=== PATIENT | male | born 1955 | race African-American/Black ===

== ENCOUNTER 2020-09-24 22:04 | Observation (INO) | payer OTHER ==
[~2020-09-24 22:04] MED LIST: LIDOCAINE PATCH REMOVAL MC SCH
[2020-09-24] MEDS ORDERED: ONDANSETRON 4 MG/2 ML VIAL IVPUSH ONE (22:27)
[2020-09-24] MEDS ORDERED: METOCLOPRAMIDE HCL INJECTION 10 MG/2 ML VIAL IVPUSH ONE (22:28)
[2020-09-24] MEDS ORDERED: ONDANSETRON 4 MG/2 ML VIAL ONE (22:28)
[2020-09-24] MEDS ORDERED: ACETAMINOPHEN INJECTION 100 ML IVPB ONE (22:34)
[2020-09-24] MEDS ORDERED: LIDOCAINE 5% TOPICAL PATCH TP ONE (22:39)
[2020-09-24] MEDS ORDERED: ACETAMINOPHEN 1000 MG/100 ML VIAL (NON FORMULARY) IVPB ONE (22:44)
[2020-09-24 22:45] LABS: BASO % 0.1 % (0-2.0); EOS % 1.7 % (0-4.5); HEMOGLOBIN 12.1 GM/dL (11.7-16.9); LYMPH % 17.6 % (8-40); MCH 26.5 pg (25.7-33.7); MCHC 33.7 g/dl (32.0-35.9); MEAN CELL VOLUME 78.5 fl (80-96); MEAN PLT VOLUME 7.9 fl (7.5-11.1); MONO % 9.4 % (3.8-10.2); NEUT % 71.2 % (42.8-82.8); PLATELET COUNT 135 10^3/uL (134-434); RBC 4.58 M/mm3 (4.00-5.60); RDW 15.3 % (11.9-15.9); WHITE BLOOD COUNT 9.1 K/mm3 (4.0-10.0)
[2020-09-24 22:53] LABS: INR 1.06 (0.83-1.09); PROTHROMBIN TIME (PATIENT) 12.8 SEC (9.7-13.0)
[2020-09-24 22:55] LABS: ACTIVATED PTT 29.6 SECONDS (25.2-36.5)
[2020-09-24 23:11] LABS: CHLORIDE 109 mmol/L (98-107); SODIUM 142 mmol/L (136-145)
[2020-09-24 23:13] LABS: CALCIUM 8.9 mg/dL (8.5-10.1)
[2020-09-24] MEDS ORDERED: LACTATED RINGERS SOLUTION 1000 ML INFUS.BAG IV ONE (23:13)
[2020-09-24 23:14] LABS: ALBUMIN 4.1 g/dl (3.4-5.0); ANION GAP 7 MMOL/L (8-16); BLOOD UREA NITROGEN 17.7 mg/dL (7-18); CO2 26 mmol/L (21-32); GLUCOSE,RANDOM 125 mg/dL (74-106)
[2020-09-24 23:17] LABS: CREATININE 1.8 mg/dL (0.55-1.3); SGOT/AST 23 U/L (15-37); SGPT/ALT 33 U/L (13-61)
[2020-09-24 23:18] LABS: BILIRUBIN,TOTAL 1.2 mg/dL (0.2-1)
[2020-09-24 23:19] LABS: TOT PROT 7.7 g/dl (6.4-8.2)
[2020-09-24 23:20] LABS: ALK PHOS 85 U/L (45-117)
[2020-09-25] MEDS ORDERED: MECLIZINE HCL 25 MG TABLET (FP) PO ONE (00:50)
[2020-09-25] MEDS ORDERED: MECLIZINE HCL 25 MG TABLET (FP) ONE (01:17)
[2020-09-25 03:36] LABS: EPI CELLS 4 /uL (0-25.1); HYALINE CASTS 0 /uL (0-3.1); PH,URINE 8.5 (5.0-8.0); URINE APPEARANCE CLEAR; URINE BACTERIA 2 /uL (0-1359); URINE BILIRUBIN NEGATIVE (NEGATIVE); URINE COLOR YELLOW; URINE GLUCOSE (UA) NEGATIVE (NEGATIVE); URINE KETONE NEGATIVE (NEGATIVE); URINE LEUK ESTERASE TRACE (NEGATIVE); URINE NITRITE NEGATIVE (NEGATIVE); URINE PROTEIN NEGATIVE (NEGATIVE); URINE RBC 1 /uL (0-23.9); URINE UROBILINOGEN 0.2 mg/dL (0.2-1.0); URINE WBC 8 /uL (0-25.8)
[2020-09-25] MEDS ORDERED: ONDANSETRON 4 MG/2 ML VIAL IVPUSH ONE (03:50)
[2020-09-25] MEDS ORDERED: ONDANSETRON 4 MG/2 ML VIAL ONE (03:52)
[2020-09-25] MEDS ORDERED: SODIUM CHLORIDE 1,000 ML IV SCH (05:30)
[2020-09-25] MEDS ORDERED: ONDANSETRON 4 MG/2 ML VIAL IVPUSH PRN (05:33)
[2020-09-25] MEDS ORDERED: MECLIZINE HCL 25 MG TABLET (FP) PO PRN (05:46)
[2020-09-25] MEDS ORDERED: HEPARIN NA (PORCINE) 5,000 UNITS/ML 1ML VIAL ONE ×2 (05:56→14:14)
[2020-09-25] MEDS: HEPARIN NA (PORCINE) 5,000 UNITS/ML 1ML VIAL SQ SCH ×3 (06:37→21:32)
[2020-09-25] MEDS: INSULIN SLIDING SCALE (NOVOLOG) 1 VIAL SQ SCH ×4 (08:37→21:32)
[2020-09-25] MEDS ORDERED: ASPIRIN COATED 81 MG TABLET.EC ONE (09:32)
[2020-09-25] MEDS ORDERED: CARVEDILOL 12.5 MG TABLET (FP) ONE (09:32)
[2020-09-25] MEDS ORDERED: hydrALAZINE HCL 25 MG TABLET (FP) ONE (09:32)
[2020-09-25] MEDS ORDERED: LIDOCAINE 5% TOPICAL PATCH ONE (09:32)
[2020-09-25] MEDS: CARVEDILOL 12.5 MG TABLET (FP) PO SCH ×2 (09:40→21:32)
[2020-09-25] MEDS: hydrALAZINE HCL 25 MG TABLET (FP) PO SCH ×2 (09:40→21:32)
[2020-09-25] MEDS: ASPIRIN COATED 81 MG TABLET.EC PO SCH (09:40)
[2020-09-25 09:53] LABS: BASO % 0.2 % (0-2.0); EOS % 0.7 % (0-4.5); HEMATOCRIT 35.3 % (35.4-49); HEMOGLOBIN 11.9 GM/dL (11.7-16.9); LYMPH % 13.2 % (8-40); MCH 26.5 pg (25.7-33.7); MCHC 33.6 g/dl (32.0-35.9); MEAN CELL VOLUME 78.9 fl (80-96); MEAN PLT VOLUME 8.1 fl (7.5-11.1); MONO % 6.1 % (3.8-10.2); NEUT % 79.8 % (42.8-82.8); PLATELET COUNT 130 10^3/uL (134-434); RBC 4.47 M/mm3 (4.00-5.60); RDW 15.3 % (11.9-15.9); WHITE BLOOD COUNT 8.3 K/mm3 (4.0-10.0)
[2020-09-25] MEDS ORDERED: LIDOCAINE PATCH REMOVAL MC ONE (10:00)
[2020-09-25 10:19] LABS: BLOOD UREA NITROGEN 14.3 mg/dL (7-18)
[2020-09-25 10:22] LABS: ALBUMIN 3.7 g/dl (3.4-5.0); MAGNESIUM 2.2 mg/dL (1.8-2.4)
[2020-09-25 10:24] LABS: PHOSPHOROUS 3.2 mg/dL (2.5-4.9)
[2020-09-25 10:25] LABS: BILIRUBIN,TOTAL 1.2 mg/dL (0.2-1); CREATININE 1.6 mg/dL (0.55-1.3)
[2020-09-25] MEDS ORDERED: LACTATED RINGERS SOLUTION 1,000 ML/1,000 ML INFUS.BAG IV SCH (14:15)
[2020-09-25] MEDS ORDERED: ATORVASTATIN CA 40 MG TABLET (FP) PO SCH (22:00)
[2020-09-25 23:15] VITALS: BMI 37.0
[2020-09-26] MEDS ORDERED: ACETAMINOPHEN 325 MG TABLET (FP) PO ONE (05:27)
[2020-09-26] MEDS: HEPARIN NA (PORCINE) 5,000 UNITS/ML 1ML VIAL SQ SCH ×2 (05:38→14:36)
[2020-09-26] MEDS: INSULIN SLIDING SCALE (NOVOLOG) 1 VIAL SQ SCH ×3 (06:23→17:23)
[2020-09-26 08:04] LABS: HEMOGLOBIN 10.8 GM/dL (11.7-16.9); MCH 26.5 pg (25.7-33.7); MCHC 33.6 g/dl (32.0-35.9); MEAN CELL VOLUME 78.8 fl (80-96); MEAN PLT VOLUME 8.8 fl (7.5-11.1); PLATELET COUNT 107 10^3/uL (134-434); RBC 4.07 M/mm3 (4.00-5.60); WHITE BLOOD COUNT 5.4 K/mm3 (4.0-10.0)
[2020-09-26 08:28] LABS: ALBUMIN 3.2 g/dl (3.4-5.0); BLOOD UREA NITROGEN 18.4 mg/dL (7-18); CALCIUM 8.3 mg/dL (8.5-10.1); MAGNESIUM 2.1 mg/dL (1.8-2.4)
[2020-09-26] MEDS ORDERED: ACETAMINOPHEN 1000 MG/100 ML VIAL (NON FORMULARY) IVPB ONE (08:30)
[2020-09-26 08:31] LABS: CREATININE 1.6 mg/dL (0.55-1.3); PHOSPHOROUS 3.5 mg/dL (2.5-4.9)
[2020-09-26] MEDS: ASPIRIN COATED 81 MG TABLET.EC PO SCH (09:44)
[2020-09-26] MEDS: CARVEDILOL 12.5 MG TABLET (FP) PO SCH (09:44)
[2020-09-26] MEDS: MECLIZINE HCL 25 MG TABLET (FP) PO SCH ×2 (09:44→14:36)
[2020-09-26] MEDS: hydrALAZINE HCL 25 MG TABLET (FP) PO SCH (09:44)
[2020-09-26 14:12] VITALS: BP 152/85; PULSE 69; TEMP 97.5
== END 2020-09-26 17:49 | disposition home or self-care (01) ==
LOC: JER 22:04 → JERBED 09-25 02:51 → INTOOBSV 09-25 02:51 → J4W 09-25 20:31
PROVIDERS: ADMIT Hospitalist; ATTEND Internal Medicine
PROC: 3E033NZ Introduction of Analgesics, Hypnotics, Sedatives into Peripheral Vein, Percutaneous Approach (ICD-10-PCS; principal; 2020-09-25)
PROC: 3E023GC Introduction of Other Therapeutic Substance into Muscle, Percutaneous Approach (ICD-10-PCS; 2020-09-25)
PROC: 3E0337Z Introduction of Electrolytic and Water Balance Substance into Peripheral Vein, Percutaneous Approach (ICD-10-PCS; 2020-09-25)
PROC: 3E033GC Introduction of Other Therapeutic Substance into Peripheral Vein, Percutaneous Approach (ICD-10-PCS; 2020-09-25)
DX: R42 Dizziness and giddiness (principal); R11.2 Nausea with vomiting, unspecified; E78.5 Hyperlipidemia, unspecified; E11.9 Type 2 diabetes mellitus without complications; E66.9 Obesity, unspecified; Z68.37 Body mass index [BMI] 37.0-37.9, adult; I10 Essential (primary) hypertension; R06.2 Wheezing; Z87.891 Personal history of nicotine dependence
CPT/HCPCS: 36415; 70450-TC; 71045-TC-FY; 72125-TC; 80053; 80061; 81003; 82550; 82553; 82570; 82962; 83036; 83721; 83735; 84100; 84439; 84443; 84484; 85025; 85027; 85610; 85730; 86850; 86900; 86901; 93005; 93010; 96361; 96372; 96374; 96375; 99285-25; C9803; G0378; J0131; J1644; U0003; U0005